=== PATIENT | female | born 1955 | race Caucasian/White ===

== ENCOUNTER 2017-11-06 10:28 | Outpatient (CLI) | payer BC ==
--- NOTE | 2017-11-06 16:27 | Mammography Report ---
BILATERAL DIGITAL SCREENING MAMMOGRAM with CAD: 11/06/17 10:28:00 CLINICAL: Routine screening. COMPARISON: 08/22/14 FINDINGS: There are bilateral scattered areas of fibroglandular density.No mass, architectural distortion or suspicious calcifications. IMPRESSION: No mammographic evidence of malignancy. BI-RADS CATEGORY: 1 -- Negative RECOMMENDATION: Routine mammographic screening in one year. COMMENT: Patient follow-up letters are generated by our [employer] application.
== END 2017-11-06 10:29 | disposition home or self-care (01) ==
LOC: SPVWC 10:28
PROVIDERS: ATTEND Family Medicine
DX: Z12.31 Encounter for screening mammogram for malignant neoplasm of breast (principal)
CPT/HCPCS: 77067

== ENCOUNTER 2019-09-16 10:45 | Outpatient (CLI) | payer BC ==
--- NOTE | 2019-09-20 15:44 | Mammography Report ---
DIGITAL SCREENING MAMMOGRAM WITH CAD, 09/16/2019 INDICATION: Routine screening mammography. TECHNIQUE: Digital bilateral 2D mammography was obtained in the craniocaudal and mediolateral obliq ue projections. This examination was interpreted with the benefit of Computer-Aided Detection analysi s. COMPARISON: 11/06/2017 FINDINGS: Breast Density: There are scattered areas of fibroglandular density. There is no evidence of dominant mass, suspicious calcifications or architectural distortion in eithe r breast. IMPRESSION: No mammographic evidence of malignancy. Follow up recommendation: Routine yearly BI-RADS Category 1: Negative. A "normal" or negative report should not discourage follow up or biopsy of a clinically significant f inding. A written summary of these findings will be mailed to the patient. The patient will be entered into a mammography reporting system which will generate a reminder letter for the patient's next appointmen t at the appropriate interval. The [employer] recommends yearly mammograms starting at age 40 and continuing as l dorothea as a woman is in good health. Breast MRI is recommended for women with an approximate 20-25% or greater lifetime risk of breast cancer, including women with a strong family history of breast or ova michelle cancer or who have been treated for Hodgkin's disease. Signer Name: Andrse Bryant MD Signed: 09/20/2019 3:39 PM Workstation Name: [id number]
== END 2019-09-16 10:46 | disposition home or self-care (01) ==
LOC: SPVWC 10:45
PROVIDERS: ATTEND Family Medicine
DX: Z12.31 Encounter for screening mammogram for malignant neoplasm of breast (principal)
CPT/HCPCS: 77067

== ENCOUNTER 2020-05-05 16:31 | Emergency (ER) | payer OTHER, BC ==
[2020-05-05 19:07] VITALS: BP 188/97
[2020-05-05] MEDS ORDERED: IBUPROFEN 400 MG TAB PO ONE (20:33)
[2020-05-05] MEDS ORDERED: FAMOTIDINE 20 MG TAB PO ONE (20:33)
[2020-05-05] MEDS ORDERED: ACETAMINOPHEN 325 MG TAB PO ONE (20:33)
--- NOTE | 2020-05-05 20:51 | Emergency Department Report ---
ED Fall HPI - General Chief Complaint: Fall Stated Complaint: FALL Source: patient Mode of arrival: Ambulatory - History of Present Illness Initial Comments: Patient is a 64-year-old Italian female with no past medical history presents to the ED with complaint of acute onset mild left shoulder pain and left knee pain after she tripped on a box at work and fell down landing on the left side. Patient states that the pain is worse in the left knee but mild in the left shoulder. Patient states that the pain is worse in the left knee especially with ambulation or bearing weight. Patient denies loss of consciousness, syncope, seizures, dizziness, neck pain, head or neck injuries, back pain, hip pain, shortness of breath, numbness and tingling or weakness of upper and lower extremities bilaterally. MD Complaint: fall, other (left shoulder pain; left knee pain) -: Sudden, hour(s) (8) Fall From: standing, other (tripped on a box and fell down, landing on left shoulder and knee) When Fall Occurred: 4-6 hours [employer], just prior to arrival Fall Witnessed: yes, by bystander Place Fall Occurred: work Loss of Consciousness: none Prolonged Down Time?: no Symptoms Prior to Fall: none Location: other (left shoulder and knee) Location - Extremities: Left: Shoulder (pain), Knee (pain) Severity: moderate Severity scale (0 -10): 6 Quality: sharp, aching Context: tripped/slipped Associated Symptoms: denies. denies: headache, neck pain, numbness, weakness, chest paint, shortness of breath, abdominal pain, hematuria, unable to walk, lightheaded, vertigo, confusion, other - Related Data Previous Rx's Medication Instructions Recorded Last Taken Type Cyclobenzaprine [Flexeril] 10 mg PO QHS PRN #10 tablet 05/05/20 Unknown Rx Ibuprofen [Motrin] 600 mg PO Q8H PRN #24 tablet 05/05/20 Unknown Rx Allergies Allergy/AdvReac Type Severity Reaction Status Date / Time Penicillins Allergy Mild Hives Verified 05/05/20 20:59 codeine Allergy Hives Verified 05/05/20 20:59 ED Review of Systems ROS: Stated complaint: FALL Other details as noted in HPI Constitutional: denies: chills, fever Eyes: denies: eye pain, eye discharge, vision change ENT: denies: ear pain, throat pain Respiratory: denies: cough, shortness of breath, wheezing Cardiovascular: denies: chest pain, palpitations Endocrine: no symptoms reported Gastrointestinal: denies: abdominal pain, nausea, diarrhea Genitourinary: denies: urgency, dysuria, discharge Musculoskeletal: arthralgia (left knee pain; left shoulder pain), myalgia. denies: back pain, joint swelling Skin: denies: rash, lesions Neurological: denies: headache, weakness, paresthesias Psychiatric: denies: anxiety, depression Hematological/Lymphatic: denies: easy bleeding, easy bruising ED Past Medical Hx - Past Medical History Previous Medical History?: Yes Hx Hypertension: Yes - Surgical History Past Surgical History?: No - Social History Smoking Status: Current Some Day Smoker - Medications Home Medications: Home Medications Medication Instructions Recorded Confirmed Last Taken Type Cyclobenzaprine [Flexeril] 10 mg PO QHS PRN #10 tablet 05/05/20 Unknown Rx Ibuprofen [Motrin] 600 mg PO Q8H PRN #24 tablet 05/05/20 Unknown Rx ED Physical Exam - General Limitations: No Limitations General appearance: alert, in no apparent distress - Head Head exam: Present: atraumatic, normocephalic, normal inspection - Eye Eye exam: Present: normal appearance, PERRL, EOMI Pupils: Present: normal accommodation - ENT ENT exam: Present: normal exam, normal orophraynx, mucous membranes moist, TM's normal bilaterally, normal external ear exam - Neck Neck exam: Present: normal inspection, full ROM - Respiratory Respiratory exam: Present: normal lung sounds bilaterally. Absent: respiratory distress, wheezes, rales, rhonchi, chest wall tenderness, accessory muscle use, decreased breath sounds - Cardiovascular Cardiovascular Exam: Present: regular rate, normal rhythm, normal heart sounds. Absent: systolic murmur, diastolic murmur, rubs, gallop - GI/Abdominal GI/Abdominal exam: Present: soft, normal bowel sounds. Absent: tenderness, guarding, rebound, hyperactive bowel sounds - Extremities Exam Extremities exam: Present: normal inspection, full ROM, tenderness (Palpable left knee and shoulder tenderness), normal capillary refill - Back Exam Back exam: Present: normal inspection, full ROM. Absent: tenderness, CVA tenderness (R), muscle spasm, paraspinal tenderness, vertebral tenderness - Neurological Exam Neurological exam: Present: alert, oriented X3, CN II-XII intact, normal gait, reflexes normal - Psychiatric Psychiatric exam: Present: normal affect, normal mood - Skin Skin exam: Present: warm, dry, intact, normal color. Absent: rash ED Course Vital Signs 05/05/20 19:03 Temperature 97.9 F Pulse Rate 88 Respiratory 15 Rate Blood Pressure 188/97 O2 Sat by Pulse 99 Oximetry ED Medical Decision Making - Radiology Data Radiology results: report reviewed, image reviewed Findings [facility] [address] [place] [address] XRay Report Signed Patient: ASH HU MR#: [id number] 1 : 1955 Acct:[id number] Age/Sex: 64 / F ADM Date: 05/05/20 Loc: ED Attending Dr: Ordering Physician: SHAY RAJPUT Date of Service: 05/05/20 Procedure(s): XR knee 3V LT Accession Number(s): [id number] cc: SHAY RAJPUT Fluoro Time In Minutes: XR knee 3V LT INDICATION / CLINICAL INFORMATION: Fall - pain. COMPARISON: None available. FINDINGS: BONES/JOINT(S): No acute fracture or subluxation. No significant degenerative changes. SOFT TISSUES: No significant abnormality. ADDITIONAL FINDINGS: None. Signer Name: Trace Weller MD Signed: 05/05/2020 9:03 PM Workstation Name: [id number] Transcribed By: ANGELINA Dictated By: Trace Weller MD Electronically Authenticated By: Trace Weller MD Signed Date/Time: 05/05/202102 DD/ 01 TD/TT: - Medical Decision Making This is a 64-year-old Italian female with no past medical history presents to the ED with complaint of acute onset mild left shoulder pain and left knee pain after she tripped on a box at work and fell down landing on the left side. Patient states that the pain is worse in the left knee but mild in the left shoulder. Patient states that the pain is worse in the left knee especially with ambulation or bearing weight. In the ED, patient is alert and oriented x3 and is not in distress. Patient was treated for pain in the ED and left knee x-ray shows no acute fractures or subluxations. Patient left knee was splinted with Mau wrap and the patient discharged home on pain medications and muscle relaxants. Patient was advised to follow-up with her primary care physician in 5 to 7 days for reevaluation or return to the ED immediately if symptoms get worse. - Differential Diagnosis Knee sprain; Muscle strain; Knee contusion; Shoulder sprain Critical care attestation.: If time is entered above; I have spent that time in minutes in the direct care of this critically ill patient, excluding procedure time. ED Disposition Clinical Impression: Sprain of left knee/leg Qualifiers: Encounter type: initial encounter Qualified Code(s): S83.92XA - Sprain of unspecified site of left knee, initial encounter Sprain of left shoulder Qualifiers: Encounter type: initial encounter Shoulder sprain type: unspecified sprain Qualified Code(s): S43.402A - Unspecified sprain of left shoulder joint, initial encounter Disposition: TO HOME OR SELFCARE Is pt being admited?: No Does the pt Need Aspirin: No Condition: Stable Instructions: Shoulder Sprain (ED), Knee Sprain (ED) Additional Instructions: The left knee x-ray shows no acute fractures or subluxations. The injury is therefore musculoskeletal sprain or muscle strain. Take medication with food, drink plenty of fluids and follow-up with your primary care physician in 5 to 7 days for reevaluation. Return to the ED immediately if symptoms get worse. Prescriptions: Cyclobenzaprine [Flexeril] 10 mg PO QHS PRN #10 tablet PRN Reason: Muscle Spasm Ibuprofen [Motrin] 600 mg PO Q8H PRN #24 tablet PRN Reason: Pain Referrals: [facility] [Provider Group] - 7-10 days Time of Disposition: 21:10 Print Language: CAMBODIAN
--- NOTE | 2020-05-05 21:07 | XRay Report ---
XR knee 3V LT INDICATION / CLINICAL INFORMATION: Fall - pain. COMPARISON: None available. FINDINGS: BONES/JOINT(S): No acute fracture or subluxation. No significant degenerative changes. SOFT TISSUES: No significant abnormality. ADDITIONAL FINDINGS: None. Signer Name: Trace Weller MD Signed: 05/05/2020 9:03 PM Workstation Name: [id number]
== END 2020-05-05 21:31 | disposition home or self-care (01) ==
LOC: ED 16:31
DX: S83.92XA Sprain of unspecified site of left knee, initial encounter (principal); S43.402A Unspecified sprain of left shoulder joint, initial encounter; I10 Essential (primary) hypertension; F17.200 Nicotine dependence, unspecified, uncomplicated; Z79.1 Long term (current) use of non-steroidal anti-inflammatories (NSAID); Z79.899 Other long term (current) drug therapy; Z88.0 Allergy status to penicillin; Z88.6 Allergy status to analgesic agent; W01.0XXA Fall on same level from slipping, tripping and stumbling without subsequent striking against object, initial encounter; Y93.89 Activity, other specified; Y92.89 Other specified places as the place of occurrence of the external cause; Y99.8 Other external cause status
CPT/HCPCS: 99283

== ENCOUNTER 2020-09-21 08:46 | Outpatient (CLI) | payer BC ==
--- NOTE | 2020-09-21 12:45 | Mammography Report ---
DEXA BONE DENSITY SCAN INDICATION / CLINICAL INFORMATION: AT RISK FOR DECREASED BONE DENSITY. 65 years Female COMPARISON: 10/23/2008. LUMBAR SPINE, L1-L4: - Bone mineral density (BMD) = 0.924 g/cm2. - T-score = -1.1 - Z-score = 0.8 Change (%) since most recent prior (if available): Decrease of 25.1% LEFT HIP, NECK : - Bone mineral density (BMD) = 0.629 g/cm2. - T-score = -2.0 - Z-score = -0.3 Change (%) since most recent prior (if available): Decrease of 31.9% IMPRESSION: 1. WHO Classification: Osteopenia. Fracture Risk: Increased. BMD Reporting Guidelines (ISCD, 2015) BMD Reporting in Postmenopausal Women and in Men Age 50 and Older * T-scores are preferred. * The WHO densitometric classification is applicable. BMD Reporting in Females Prior to Menopause and in Males Younger Than Age 50 * Z-scores, not T-scores, are preferred. This is particularly important in children. * A Z-score of -2.0 or lower is defined as below the expected range for age, and a Z-score above -2. 0 is within the expected range for age. * Osteoporosis cannot be diagnosed in men under age 50 on the basis of BMD alone. * The WHO diagnostic criteria may be applied to women in the menopausal transition. http://www.iscd.org/official-positions/7538-duvn-pqwubzep-positions-adult/ Signer Name: Adrian Andrade MD Signed: 09/21/2020 12:40 PM Workstation Name: [id number]
--- NOTE | 2020-09-24 08:59 | Mammography Report ---
DIGITAL SCREENING MAMMOGRAM WITH CAD, 09/21/2020 CLINICAL INFORMATION / INDICATION: Routine screening mammography. TECHNIQUE: Digital bilateral 2D mammography was obtained in the craniocaudal and mediolateral obliqu e projections. This examination was interpreted with the benefit of Computer-Aided Detection analysis . COMPARISON: 09/16/2019, 11/06/2017 FINDINGS: Breast Density: There are scattered areas of fibroglandular density. No dominant mass, suspicious calcifications, or architectural distortion in either breast. IMPRESSION: No mammographic evidence of malignancy. Follow up recommendation: Routine yearly BI-RADS Category 1: Negative. A "normal" or negative report should not discourage follow up or biopsy of a clinically significant f inding. A written summary of these findings will be mailed to the patient. The patient will be entered into a mammography reporting system which will generate a reminder letter for the patient's next appointmen t at the appropriate interval. The [employer] recommends yearly mammograms starting at age 40 and continuing as l dorothea as a woman is in good health. Breast MRI is recommended for women with an approximate 20-25% or greater lifetime risk of breast cancer, including women with a strong family history of breast or ova michelle cancer or who have been treated for Hodgkin's disease. Signer Name: Silvestre Fish MD Signed: 09/24/2020 8:54 AM Workstation Name: [id number]
== END 2020-09-21 08:47 | disposition home or self-care (01) ==
LOC: SPVWC 08:46
PROVIDERS: ATTEND Family Medicine
DX: Z12.31 Encounter for screening mammogram for malignant neoplasm of breast (principal); Z91.89 Other specified personal risk factors, not elsewhere classified; M85.88 Other specified disorders of bone density and structure, other site
CPT/HCPCS: 77067; 77080

== ENCOUNTER 2021-10-18 08:08 | Outpatient (CLI) | payer BC | END 2021-10-18 08:09 | disposition home or self-care (01) | LOC: SPVWC 08:08 | PROVIDERS: ATTEND Family Medicine | DX: Z12.31 Encounter for screening mammogram for malignant neoplasm of breast (principal) | CPT/HCPCS: 77067 ==